=== PATIENT | male | born 1980 | race Caucasian/White ===

== ENCOUNTER 2020-09-10 10:40 | Emergency (ER) | payer MEDICAID, SELFPAY ==
--- NOTE | 2020-09-10 10:35 | ECG_ITS ---
APPROVED REPORT Exam: Resting ECG HR:77 bpm ECG Measurements Heart Rate 77 AXES DC 130 P 57 QRSd 72 QRS -15 QT 354 T 57 QTc 400 Conclusion Normal sinus rhythm Normal ECG Electronically signed by : Rosalio Pacheco, 09/11/2020 15:09:26
[2020-09-10 10:41] VITALS: BP 166/94; PULSE 98; RESP 18; O2SAT 97; BMI 22.9
--- NOTE | 2020-09-10 10:45 | XR_ITS ---
PROCEDURE: XR CHEST 2V CLINICAL HISTORY: CHEST PAIN COMPARISON: No exams were available for comparison FINDINGS: The cardiomediastinal silhouette and pulmonary vascularity are within normal limits. The lungs are clear without infiltrates, suspicious nodules, or pleural effusions. No acute bony abnormalities. IMPRESSION: No acute findings. Dictated by: Courtney Hall 09/10/2020 11:23 Courtney Hall in [place] 09/10/2020 11:23
[2020-09-10 10:55] LABS: Basophils % 0.4 % (0.1-2.0); Eosinophils # 0.1 K/mm3 (0.0-0.4); Eosinophils % 0.9 % (0.1-12.0); Hematocrit 44.6 % (42.0-52.0); Hemoglobin 15.3 g/dL (14.1-18.0); Lymphocytes # 1.6 K/mm3 (0.7-4.5); Lymphocytes % 25.2 % (10-50); Mean Corpuscular HGB Conc 34.2 g/dL (31.8-35.4); Mean Corpuscular Hemoglobin 32.3 pg (27.0-31.2); Mean Corpuscular Volume 94.4 fl (80-94); Mean Platelet Volume 7.9 fl (7.4-10.4); Monocytes # 0.6 K/mm3 (0.1-1.0); Monocytes % 9.5 % (1.7-9.3); Platelet Count 273 K/mm3 (142-424); Red Blood Count 4.72 M/mm3 (4.60-6.20); White Blood Count 6.2 K/mm3 (4.8-10.8)
[2020-09-10 11:04] LABS: Chloride 105 mmol/L (98-107); Potassium 3.5 mmoL/L (3.5-5.1); Sodium 141 mmol/L (136-145)
--- NOTE | 2020-09-10 11:04 | [facility].EDCP ---
ED Disposition Clinical Impression: Radiculopathy due to disorder of intervertebral disc Chest pain Qualifiers: Chest pain type: intercostal pain Qualified Code(s): R07.82 - Intercostal pain Disposition: Home, Self-Care Condition on Discharge: Good Instructions: DI for Atypical Chest Pain Prescriptions: diazePAM [Valium 5mg tablets] 5 mg PO BID #10 tablet Transmission Status: Received by [place] [id number] Referrals: PCP,Susy [Primary Care Provider] - Amos Uriarte MD [Staff Physician] - - Critical Care Critical Care Time: No Attestation: On 09/10/20, the high probability of a clinically significant, sudden or life threatening deterioration of the following system(s) required my full and direct attention, intervention and personal management. The time I documented below is in addition to time spent performing reported procedures but includes the following listed in this critical care notation. Medical Decision Making - Medical Records Medical records reviewed: Yes: I reviewed the patient's medical records. - Nathan Inquiry Pt receiving controlled substance: Yes Nathan was queried for this patient: Yes Risks and benefits of using a controlled substance: were discussed with pt by me Vital Signs: 09/10/20 10:41 Pulse Rate [Radial] 98 H Respiratory Rate 18 Blood Pressure [Right Arm] 166/94 H Blood Pressure Mean [Right Arm] 118 Blood Pressure Position [Right Arm] Sitting 02 Sat by Pulse Oximetry 97 Oxygen Delivery Method Room Air - Lab Data Lab Results 09/10/20 10:46: WBC 6.2, RBC 4.72, Hgb 15.3, Hct 44.6, MCV 94.4 H, MCH 32.3 H, MCHC 34.2, RDW 13.0, Plt Count 273, MPV 7.9, Neut % (Auto) 64.0, Lymph % (Auto) 25.2, P[place] % (Auto) 9.5 H, Eos % (Auto) 0.9, Baso % (Auto) 0.4, Neut # (Auto) 4.0, Lymph # (Auto) 1.6, Prow[place] # (Auto) 0.6, Eos # (Auto) 0.1, Baso # (Auto) 0.0 09/10/20 10:46: Sodium 141, Potassium 3.5, Chloride 105, Carbon Dioxide 30, Anion Gap 9.5, BUN 6 L, Creatinine 0.70, Estimated Creat Clear 152, Estimated GFR 125, Est GFR ( Amer) 151, Glucose 124 H, Calcium 9.5, Troponin I < 0.01 Result diagrams: 09/10/20 10:46 09/10/20 10:46 Orders (Tests/Meds): ED MEDICATIONS Discontinued Medications Generic Name Dose Route Start Last Admin Trade Name Edita PRN Reason Stop Dose Admin Morphine Sulfate 4 mg 09/10/20 10:56 09/10/20 11:08 Morphine 4mg/Ml Syringe IV 09/10/20 10:57 4 mg ONCE ONE Administration Ondansetron HCl 4 mg 09/10/20 10:56 09/10/20 11:07 Ondansetron 4mg/2ml Vial IV 09/10/20 10:57 4 mg ONCE ONE Administration ORDERS Category Date Time Status Troponin I Q3H Lab 09/10/20 14:00 Ordered Troponin I Q3H Lab 09/10/20 17:00 Ordered - Radiology Data #1 Image(s): Chest Image Reviewed: Yes I reviewed the patient's radiology results, Yes I discussed the image results w/the radiologist, Yes I have reviewed radiologist's interpretation - ECG Data Tracing #1 ECG initial impression date: 09/10/20 ECG initial impression time: 10:37 ECG normal with no acute: arrhythmias, ischemia, conduction abnormalities, chamber hypertrophy Normal Sinus Rhythm: Yes - Reevaluation(s) Time: 11:57 Reevaluation #1: On reevaluation, patient is feeling much better. Pain is improved. Repeat exam is normal. Patient had negative troponin. Normal EKG. Patient is to follow-up with PCP. Given strict return precautions. Verbalized understanding. Medical Decision Narrative: 39-year-old male presented to the emergency department with chronic back pain and chest discomfort. Patient is low risk for acute coronary syndrome based on heart score. Hemodynamically stable. PERC negative. Work-up initiated. Chest Pain HPI - General Chief Complaint: Chest Pain Stated Complaint: chest pain Time Seen by Provider: 09/10/20 10:45 Mode of Arrival: Ambulatory Limitations: No Limitations Description of Symptoms (Recalled from ER Triage Doc. by RN): TO ED
[2020-09-10 11:07] LABS: Anion Gap 9.5 mEq/L (5-15); Blood Urea Nitrogen 6 mg/dl (9-20); Carbon Dioxide 30 mmol/L (22.0-30.0); Creatinine Clearance Estimated 152 mL/min (50-200); Estimated Glomerular Filt Rate 125 ml/min (>60); GFR (African American) 151 ML/MIN (>60)
[2020-09-10 11:08] LABS: Calcium 9.5 mg/dl (8.4-10.2); Glucose 124 mg/dl (74-100)
[2020-09-10 11:28] LABS: Troponin I < 0.01 ng/ml (0.00-0.034)
[2020-09-10 11:30] VITALS: BP 131/112; PULSE 75; RESP 18; O2SAT 97
[2020-09-10 12:11] VITALS: BP 123/105; PULSE 71; RESP 18; TEMP 36.8; O2SAT 98
== END 2020-09-10 12:10 | disposition home or self-care (01) ==
PROVIDERS: Emergency Provider Emergency Medicine
DX: M54.14 Radiculopathy, thoracic region (principal); R07.82 Intercostal pain; F17.210 Nicotine dependence, cigarettes, uncomplicated
CPT/HCPCS: 71046; 80048; 84484; 85025; 93005; 99282; J2405

== ENCOUNTER → 2020-10-20 13:27 | Outpatient (CLI) | payer MEDICAID, SELFPAY ==
--- NOTE | 2020-10-20 13:32 | XR_ITS ---
PROCEDURE: XR MULTIPLE SPINE 6+V CLINICAL INDICATION: SPONDYLOSIS COMPARISON: No exams were available for comparison FINDINGS: Anterolisthesis of L5 over S1 measuring up to 6 millimeters. No other acute fractures or traumatic subluxation. Minor multilevel degenerative changes of the lumbar spine with facet joint arthropathy noted in the lower lumbar levels. Bone density is normal. Paravertebral soft tissues are unremarkable. 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 The visualized thoracic spine demonstrates no focal abnormality. No acute fractures or listhesis. IMPRESSION: Anterolisthesis of L5 over S1 measuring 6 millimeters. No acute fractures or traumatic subluxation. Dictated by: Courtney Hall 10/20/2020 14:31 Courtney Hall in [place] 10/20/2020 14:31
--- NOTE | 2020-10-20 13:37 | XR_ITS ---
PROCEDURE: XR SHOULDER LT MIN 2V CLINICAL INDICATION: LT ARM NUMBNESS RADIATING TO CHEST COMPARISON: No exams were available for comparison FINDINGS: No fracture or dislocation. No lytic or blastic change. There is normal mineralization. The joint spaces are well-preserved. No significant degenerative/arthritic changes. No erosive changes evident. Other findings:The soft tissues and the left hemithorax are unremarkable. IMPRESSION: No acute findings. Dictated by: Courtney Hall 10/20/2020 14:42 Courtney Hall in [place] 10/20/2020 14:42
== END ==
PROVIDERS: Visit Provider Clinical Nurse Specialist Adult Health
DX: M54.2 Cervicalgia (principal); M47.812 Spondylosis without myelopathy or radiculopathy, cervical region; M47.816 Spondylosis without myelopathy or radiculopathy, lumbar region
CPT/HCPCS: 72084; 73030

== ENCOUNTER 2024-01-01 10:07 | Emergency (ER) | payer MEDICAID, SELFPAY ==
[2024-01-01 10:10] VITALS: BP 125/61; PULSE 79; RESP 19; TEMP 36.6; O2SAT 98; BMI 23.3
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
[2024-01-01 11:18] VITALS: BP 125/61; PULSE 79; RESP 19; TEMP 36.6; O2SAT 98
== END 2024-01-01 11:20 | disposition home or self-care (01) ==
PROVIDERS: Emergency Provider Nurse Practitioner Family; PCP Family Medicine
DX: L03.311 Cellulitis of abdominal wall (principal); S67.21XA Crushing injury of right hand, initial encounter; M79.641 Pain in right hand; M25.531 Pain in right wrist; W22.8XXA Striking against or struck by other objects, initial encounter
CPT/HCPCS: 73110; 73130; 99204; 99212; G0463

== ENCOUNTER 2024-01-02 02:31 | Emergency (ER) | payer SELFPAY ==
[2024-01-02 02:31] VITALS: BP 138/83; PULSE 70; RESP 13; TEMP 36.6; O2SAT 98
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
--- NOTE | 2024-01-02 02:36 | XR_ITS ---
PROCEDURE INFORMATION: Exam: XR Left Knee Exam date and time: 01/02/2024 3:11 AM Age: 43 years old Clinical indication: Pain; Knee; Left TECHNIQUE: Imaging protocol: Radiologic exam of the left knee. Views: 3 views. COMPARISON: No relevant prior studies available. FINDINGS: Bones/joints: Normal. Soft tissues: Normal. IMPRESSION: No acute findings.
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
--- NOTE | 2024-01-02 02:38 | PC.NURSE ---
Patient to radiology
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
[2024-01-02 02:53] LABS: Basophils # 0.1 K/mm3 (0-0.2); Basophils % 1.2 % (0.1-2.0); Eosinophils # 0.2 K/mm3 (0.0-0.4); Eosinophils % 2.3 % (0.1-12.0); Hematocrit 47.4 % (42.0-52.0); Hemoglobin 15.6 g/dL (14.1-18.0); Lymphocytes # 1.6 K/mm3 (0.7-4.5); Lymphocytes % 21.9 % (10-50); Mean Corpuscular HGB Conc 32.9 g/dL (31.8-35.4); Mean Corpuscular Hemoglobin 34.1 pg (27.0-31.2); Mean Corpuscular Volume 103.7 fl (80-94); Mean Platelet Volume 8.3 fl (7.4-10.4); Monocytes # 0.5 K/mm3 (0.1-1.0); Monocytes % 6.9 % (1.7-9.3); Neutrophils % 67.8 % (37.0-80.0); Platelet Count 224 K/mm3 (142-424); Red Blood Count 4.57 M/mm3 (4.60-6.20); Red Cell Distribution Width 14.6 % (11.5-17.5); White Blood Count 7.4 K/mm3 (4.8-10.8)
[2024-01-02 03:06] LABS: Chloride 103 mmol/L (98-107)
[2024-01-02 03:07] LABS: Potassium 4.1 mmoL/L (3.5-5.1); Sodium 139 mmol/L (136-145)
[2024-01-02 03:09] LABS: Alanine Aminotransferase 44 U/L (12-78); Alkaline Phosphatase 59 U/L (38-126); Aspartate Amino Transferase 70 U/L (17-59); Bilirubin,Total 0.8 mg/dl (0.2-1.3); Blood Urea Nitrogen 11 mg/dl (9-20); Estimated Glomerular Filt Rate 81 ml/min (>60); GFR (African American) 98 ML/MIN (>60)
[2024-01-02 03:10] LABS: Albumin Level 4.1 g/dl (3.5-5.0); Albumin/Globulin Ratio 1.3 (1.1-1.8); Anion Gap 7.1 mEq/L (5-15); Calcium 9.1 mg/dl (8.4-10.2); Carbon Dioxide 33 mmol/L (22.0-30.0); Globulin 3.1 g/dL (1.3-3.2); Glucose 98 mg/dl (74-100); Total Protein,Serum 7.2 g/dl (6.3-8.2)
--- NOTE | 2024-01-02 03:23 | PC.NURSE ---
pt is back in the room from ct scan
[2024-01-02] MEDS: SODIUM CHLORIDE 0.9% 10ML SYR (RAD ONLY) 10 ML IV (03:26)
[2024-01-02] MEDS: 0.9 % SODIUM CHLORIDE 50 ML VIAL IV (03:26)
[2024-01-02] MEDS: IOPAMIDOL-370 (76%);100ML BOTTLE 180 ML IV (03:26)
[2024-01-02 03:36] VITALS: BMI 24.0
--- NOTE | 2024-01-02 03:36 | PC.NURSE ---
Addendum entered by JOE Hall 01/02/24 03:37: spoke with Lexie @ [facility] Original Note: call to [facility] for transfer to their facility
--- NOTE | 2024-01-02 03:48 | PC.NURSE ---
ED doctor on phone with Dr. Rosado, who has accepted patient.
--- NOTE | 2024-01-02 04:00 | PC.NURSE ---
Call from [facility] to speak to Dr. Venegas, informed them he was inserting a chest tube in patient, they will call back in approx. 10 minutes
[2024-01-02] MEDS: KETAMINE 50MG/1ML SYRINGE 20 MG IV (04:01)
--- NOTE | 2024-01-02 04:13 | XR_ITS ---
PROCEDURE INFORMATION: Exam: XR Chest Exam date and time: 01/02/2024 4:10 AM Age: 43 years old Clinical indication: Device placement; Chest tube; Additional info: Post- chest tube insertion TECHNIQUE: Imaging protocol: Radiologic exam of the chest. Views: 1 view. COMPARISON: CT ANGIO CHEST 01/02/2024 3:10 AM FINDINGS: Tubes, catheters and devices: RIGHT chest tube. Lungs: Minimal subsegmental atelectasis/scarring. No consolidation. Pleural spaces: Tiny RIGHT pneumothorax. Tiny RIGHT pleural effusion. Heart/Mediastinum: No cardiomegaly. Bones/joints: RIGHT lateral rib fractures. Soft tissues: Unremarkable. IMPRESSION: S/P RIGHT chest tube placement. Tiny residual pneumothorax.
--- NOTE | 2024-01-02 04:40 | PC.NURSE ---
20 Fr Chest tube inserted by Dr. Venegas
[2024-01-02 04:53] VITALS: BP 115/82; PULSE 63; RESP 15; TEMP 36.6; O2SAT 98
== END 2024-01-02 05:03 | disposition other institution (70) ==
PROVIDERS: Emergency Provider Emergency Medicine
DX: S22.41XA Multiple fractures of ribs, right side, initial encounter for closed fracture (principal); J93.83 Other pneumothorax; S01.112A Laceration without foreign body of left eyelid and periocular area, initial encounter; M25.562 Pain in left knee; M79.644 Pain in right finger(s); F17.210 Nicotine dependence, cigarettes, uncomplicated; V49.9XXA Car occupant (driver) (passenger) injured in unspecified traffic accident, initial encounter
CPT/HCPCS: 32551; 70450; 70496; 70498; 71045; 71275; 72125; 72128; 72131; 73130; 73562; 74174; 80053; 85025; 96374; 99291; Q9967

== ENCOUNTER 2024-01-06 05:06 | Emergency (ER) | payer MEDICAID, SELFPAY ==
[2024-01-06] VITALS (18 sets, daily range): BP systolic 113–150; BP diastolic 68–90; PULSE 98–129; RESP 22–51; TEMP 36.6–36.8; O2SAT 0–100; BMI 23.7
--- NOTE | 2024-01-06 05:12 | ECG_ITS ---
APPROVED REPORT Exam: Resting ECG HR:129 bpm ECG Measurements Heart Rate 129 AXES NE 96 P 62 QRSd 73 QRS 2 QT 275 T 59 QTc 351 Conclusion Sinus tachycardia Electronically signed by : WENDY VINES, 01/06/2024 15:21:10
[2024-01-06] MEDS: LACTATED RINGERS 1000ML 1,000 ML 999 ML IV (05:20)
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
[2024-01-06 05:23] LABS: Basophils # 0.1 K/mm3 (0-0.2); Basophils % 0.5 % (0.1-2.0); Eosinophils # 0.1 K/mm3 (0.0-0.4); Eosinophils % 0.7 % (0.1-12.0); Hematocrit 37.7 % (42.0-52.0); Hemoglobin 12.3 g/dL (14.1-18.0); Lymphocytes # 1.6 K/mm3 (0.7-4.5); Lymphocytes % 11.5 % (10-50); Mean Corpuscular HGB Conc 32.5 g/dL (31.8-35.4); Mean Corpuscular Hemoglobin 33.7 pg (27.0-31.2); Mean Corpuscular Volume 103.7 fl (80-94); Mean Platelet Volume 8.9 fl (7.4-10.4); Monocytes % 7.6 % (1.7-9.3); Neutrophils # 10.7 K/mm3 (1.8-7.8); Neutrophils % 79.7 % (37.0-80.0); Platelet Count 293 K/mm3 (142-424); Red Blood Count 3.64 M/mm3 (4.60-6.20); Red Cell Distribution Width 14.2 % (11.5-17.5); White Blood Count 13.4 K/mm3 (4.8-10.8)
--- NOTE | 2024-01-06 05:23 | PC.NURSE ---
pt in ct at this time. family notified of current status.
--- NOTE | 2024-01-06 05:26 | PC.NURSE ---
pt to CT
[2024-01-06] MEDS: ONDANSETRON 4MG/2ML VIAL 4 MG IV (05:27)
[2024-01-06 05:29] LABS: VBG Base Excess -0.1 mmol/L (-2.4-2.3); VBG HCO3 25.4 mmol/L (23-30); VBG Oxygen Saturation 49.6 % (50-70); VBG PCO2 46.4 mmol/L (35-51); VBG PH 7.36 mmol/L (7.31-7.41); VBG PO2 26.3 mmol/L (28-40); VBG Total CO2 26.8 mmol/L (23-27)
[2024-01-06 05:30] LABS: Lactate Venous 2.6 mmol/L (0.4-2.0)
[2024-01-06 05:32] LABS: Alanine Aminotransferase 25 U/L (12-78); Albumin Level 3.7 g/dl (3.5-5.0); Albumin/Globulin Ratio 1.2 (1.1-1.8); Alkaline Phosphatase 71 U/L (38-126); Anion Gap 11.1 mEq/L (5-15); Aspartate Amino Transferase 28 U/L (17-59); Bilirubin,Total 0.5 mg/dl (0.2-1.3); Blood Urea Nitrogen 19 mg/dl (9-20); Calcium 8.7 mg/dl (8.4-10.2); Carbon Dioxide 27 mmol/L (22.0-30.0); Chloride 101 mmol/L (98-107); Creatinine Clearance Estimated 118 mL/min (50-200); Estimated Glomerular Filt Rate 92 ml/min (>60); GFR (African American) 111 ML/MIN (>60); Glucose 176 mg/dl (74-100); Potassium 4.1 mmoL/L (3.5-5.1); Sodium 135 mmol/L (136-145); Total Protein,Serum 6.7 g/dl (6.3-8.2)
--- NOTE | 2024-01-06 05:32 | PC.NURSE ---
radiology notified to [facility] and make a disc of images
[2024-01-06 05:34] LABS: Activated Partial Thrombo Time 26.6 seconds (22.8-30.6); Prothrombin Time 11.2 seconds (10.1-12.5)
--- NOTE | 2024-01-06 05:41 | PC.NURSE ---
call placed to [facility]. spoke with sydnee.
--- NOTE | 2024-01-06 05:46 | PC.NURSE ---
attempted to obtain pulse ox on pts fingers, ears, and forehead, but unable to obtain . MD aware.
--- NOTE | 2024-01-06 05:50 | PC.NURSE ---
ED doctor on phone with Dr. Rosado @ [facility]
--- NOTE | 2024-01-06 05:51 | PC.NURSE ---
call placed to [facility] and advised need for flight.
--- NOTE | 2024-01-06 05:52 | PC.NURSE ---
v/o 2nd unit of blood per [facility] rec.
[2024-01-06] MEDS: 0.9 % SODIUM CHLORIDE 50 ML VIAL IV (05:57)
[2024-01-06] MEDS: SODIUM CHLORIDE 0.9% 10ML SYR (RAD ONLY) 10 ML IV (05:57)
[2024-01-06] MEDS: IOPAMIDOL-370 (76%);100ML BOTTLE 100 ML IV (05:57)
[2024-01-06] MEDS: TRANEXAMIC ACID 1,000 MG in 0.9 % SODIUM CHLORIDE 250 ML 32.5 MG IV (06:07)
--- NOTE | 2024-01-06 06:15 | PC.NURSE ---
blood sent with flight crew as patient left facility
--- NOTE | 2024-01-06 06:26 | PC.NURSE ---
0551- 1st unit emergent blood started 0604- 1st unit PRBC's finished 0605- 2nd unit PRBC's started 0616- 2nd unit finished. TXA started in LAC 0600
--- NOTE | 2024-01-06 06:43 | PC.NURSE ---
0613- [facility] arrived 0623- pt left facility.
--- NOTE | 2024-01-06 07:03 | PC.NURSE ---
0615 - pts o2 sats decreased to 85%, with good pleath on monitor. pt was breathing through mouth at that time. O@ increased to 4L NC. Instructed pt to breathe through nose and O2 sats increased to >95%. MD at bedside.
[2024-01-06 09:27] LABS: Reflex Lactic Add Lactic Reflex
== END 2024-01-06 06:28 | disposition short-term general hospital (02) ==
PROVIDERS: Emergency Provider Emergency Medicine
DX: S36.09XA Other injury of spleen, initial encounter (principal); R57.1 Hypovolemic shock; R10.0 Acute abdomen; R00.0 Tachycardia, unspecified; X58.XXXA Exposure to other specified factors, initial encounter
CPT/HCPCS: 36430; 71275; 74174; 80053; 82803; 85025; 85610; 85730; 86850; 93005; 96361; 96374; 96375; 99291; J2405; J7120; P9016; Q9967

== ENCOUNTER 2024-06-12 10:15 | Emergency (ER) | payer MEDICAID, SELFPAY ==
[2024-06-12 10:16] VITALS: BP 124/88; PULSE 83; RESP 18; TEMP 36.6; O2SAT 100; BMI 21.7
--- NOTE | 2024-06-12 10:52 | ED_ITS ---
Discharge Plan Disposition Patient Disposition: Home, Self-Care Prescriptions Prescriptions: New sulfamethoxazole-trimethoprim [Bactrim DS] 800-160 mg tablet 1 tab PO Q12H 7 Days Qty: 14 0RF No Action methocarbamol 500 mg tablet 500 mg PO Q8H sennosides-docusate sodium [Senexon-S] 8.6-50 mg tablet 2 tab PO DAILYP PRN (Reason: stool softner) acetaminophen 500 mg tablet 1,000 mg PO Q6HP PRN (Reason: Pain) gabapentin 100 mg capsule 100 mg PO DIRECTED oxycodone 5 mg Tablet 5 mg PO Q6H PRN (Reason: Pain) hydroxyzine pamoate 25 mg capsule 25 mg PO Q6HP PRN (Reason: Anxiety) Referrals Follow up/Referrals: Provider,Referral, MD [Primary Care Provider] - See instructions Activity Restrictions/Add. Instructions Additional Instructions/Restrictions: At this time it was felt you are safe to be discharged home. If new or worsening symptoms please do not hesitate to return the emergency department. It is okay to shower do not submerge your leg totally in water until it is healed up, it should heal over the next few days please take antibiotics as prescribed and change her bandage as you are needed. If it continues to get worse after 24 to 48 hours please follow-up with your family doctor for continued evaluation. Clinical Impressions Clinical Impression: Abscess of left thigh Instructions Patient Instructions: DI for Skin Abscess Print Language Print Language: [place] Citizen Discharge ED Provider: Doc Anderson General Adult HPI General Chief complaint: Skin/Abscess/Foreign Body Stated complaint: Boil on L leg Time Seen by Provider: 06/12/24 10:20 Mode of Arrival: Ambulatory Source of Information: Patient Limitations: No Limitations Description of Symptoms (Recalled from ER Triage Doc. by RN): red raised area to left upper leg x 2 weeks History of Present Illness HPI narrative: Patient is a 43-year-old male past medical history of recurrent abscesses who presents emergency department for evaluation of concern for an abscess. Onset was subacute over 2 weeks ago he has had this slowly progressive swelling of his left lateral thigh. Patient is asplenic. No other acute complaints at this time Related Data Home Medications ?Medication ?Instructions ?Recorded ?Confirmed acetaminophen 500 mg tablet 1,000 mg PO Q6HP PRN Pain 01/06/24 01/06/24 gabapentin 100 mg capsule 100 mg PO DIRECTED neuropathy 01/06/24 01/06/24 hydroxyzine pamoate 25 mg capsule 25 mg PO Q6HP PRN Anxiety 01/06/24 01/06/24 methocarbamol 500 mg tablet 500 mg PO Q8H 01/06/24 01/06/24 oxycodone 5 mg tablet 5 mg PO Q6H PRN Pain 01/06/24 01/06/24 sennosides 8.6 mg-docusate sodium 2 tab PO DAILYP PRN stool softner 01/06/24 01/06/24 50 mg tablet (Senexon-S) Previous Rx's ?Medication ?Instructions ?Recorded sulfamethoxazole 800 1 tab PO Q12H 7 days #14 tabs 06/12/24 mg-trimethoprim 160 mg tablet (Bactrim DS) Allergies Allergy/AdvReac Type Severity Reaction Status Date / Time No Known Allergies Allergy Verified 04/16/18 13:01 [facility] Disclaimer: The information contained in this section may have been updated after the patient was seen, as this information can be updated by other users. Medical History (Updated 06/12/24 @ 10:52 by Doc Anderson MD) Depression Anxiety Urinary tract infection History of gastroesophageal reflux (GERD) Migraine Asthma Social History (Updated 01/01/24 @ 20:24 by Jeromy Galvan APRN) Smoking Status: Current every day smoker tobacco type: cigarettes alcohol intake: never current occupational status: disabled Travel in the last 8 weeks: None Have you lived/traveled outside [place] in past 30 days?: No Contact w/someone who lives/traveled outside US past 30 days?: No Exposure to someone with infectious disease in past 14 days?: No Do you have a fever (greater than 100.4 F or 38 C)?: No Have you tested positive for COVID-19: No Exposed to someone with COVID-19 in past 14 days?: No Do you have a sore throat?: No Do you have a cough?: No Do you have any weakness?: No Do you have any diarrhea?: No Are you experiencing any unusual bleeding?: No Do you have any muscle aches/pain?: No Do you have any abdominal pain?: No Are you experiencing loss of taste or smell?: No Other Medical History Have you received the Flu Vaccine for this season: Yes Have you received the Pneumonia Vaccine: Yes ROS Obtained: Yes Systems reviewed as appropriate & no additional complaints except as documented Physical Exam General General appearance: alert and in no apparent distress Head Head exam: atraumatic and normocephalic Eye Eye exam: Present PERRL and EOMI ENT ENT exam: Present mucous membranes moist Neck Neck exam: Present normal inspection Chest Chest inspection: Present normal inspection and symmetric chest wall rise Respiratory Respiratory exam: Absent respiratory distress Cardiovascular Cardiovascular exam: Present regular rate and normal rhythm Extremities Exam Extremities exam: Present other (Circumferential area of erythema over the left lateral thigh 5 cm with central area of fluctuance) Neurological Exam Neurological exam: Present alert Psychiatric Psychiatric exam: Present normal affect Skin Skin exam: Present warm and dry Medical Decision Making Medical Records Screening: Per USPSTF and CDC recommendations, given the prevalence of disease in our region, it is our hospital?s policy to screen for HIV and viral Hepatitis for all patients aged 18 and over and those with ongoing risk factors. Nathan Inquiry Pt receiving controlled substance: No Vital Signs: 06/12/24 10:16 Temperature 98 F Temperature Source Oral Pulse Rate [Right] 83 Respiratory Rate 18 Blood Pressure [Right Arm] 124/88 Blood Pressure Mean [Right Arm] 100 02 Sat by Pulse Oximetry 100 Oxygen Delivery Method Room Air Orders (Tests/Meds): ORDERS Category Date Time Status POCUS Point of Care (ER Only) Stat Exams 06/12/24 10:32 Ordered HIV (1&2) Antibody Rapid Stat Lab 06/12/24 10:26 Ordered Hep C Ab with Reflex to RNA Stat Lab 06/12/24 10:26 Ordered Medical Decision Narrative: In summary patient is a 43-year-old male past medical history described above presents emergency department for evaluation of lateral thigh swelling. Given patient's history of recurrent abscesses and based on physical exam it is strongly consistent with abscess. Patient is well-appearing otherwise. Plan ultrasound at bedside shows approximately 0.5 cm x 1 cm fluid collection just beneath the surface at the area where the central fluctuance is. Shared decision-making discussion was had with numbing by lancing or just lancing alone. Patient elected to proceed with lancing with success with drainage of purulent fluid patient will be discharged with Bactrim was given return precautions. Procedure: Procedure performed was [id number] ultrasound of soft tissue. Procedure performed by Doc Anderson. Area of erythema and fluctuance over the left lateral proximal thigh was identified and using the linear probe the area of fluctuance was imaged. There is a approximately 0.5 x 1.0 cm hypoechoic area. This is consistent with fluid collection. Patient tolerated procedure well. There were no immediate complications. Procedure: Procedure performed was incision and drainage. Procedure performed by Doc Anderson. Patient deferred numbing with lidocaine. Area of maximum fluctuance was lanced with an 11 blade with 1 incisional wound. 3 cc of purulence was expressed from the wound. Wound was subsequently dressed. Patient tolerated the procedure well. There were no immediate complications. Critical Care Critical Care Time Critical Care Time: No
[2024-06-12 11:04] VITALS: BP 128/77; PULSE 81; RESP 18; TEMP 36.7; O2SAT 99
== END 2024-06-12 11:06 | disposition home or self-care (01) ==
PROVIDERS: Emergency Provider Emergency Medicine
DX: L02.416 Cutaneous abscess of left lower limb (principal); R22.32 Localized swelling, mass and lump, left upper limb
CPT/HCPCS: 10060; 99283

== ENCOUNTER 2025-05-24 05:46 | Emergency (ER) | payer MEDICAID, SELFPAY ==
[2025-05-24] VITALS (10 sets, daily range): BP systolic 111–133; BP diastolic 78–89; PULSE 52–75; RESP 16–18; TEMP 36.6–37.1; O2SAT 97–100; BMI 21.7
--- NOTE | 2025-05-24 05:56 | ECG_ITS ---
APPROVED REPORT Exam: Resting ECG HR:65 bpm ECG Measurements Heart Rate 65 AXES GA 154 P 62 QRSd 80 QRS 19 QT 380 T 67 QTc 391 Conclusion SINUS RHYTHM NORMAL ECG Electronically signed by : WALESKA MEZA, 05/24/2025 07:19:33
--- OUTSIDE RECORDS SUMMARY | 2025-05-24 06:00 | XMS_ITS | Clinical Summary ---
Author Organization [facility] Address [facility] [place] [address] Phone Care Team Providers Care Applications Trainer Name Role Phone Clari Mccarthy MA Unavailable [phone] Conditions or Problems No information available. Medications No information available. Medications Administered No information available. Allergies, Adverse Reactions, Alerts No information available. Results No information available. Plan of Care No information available. Procedures No information available. Vital Signs No information available. Immunizations No information available. Advance Directives No information available.
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
--- NOTE | 2025-05-24 06:07 | XR_ITS ---
PROCEDURE INFORMATION: Exam: XR Chest Exam date and time: 05/24/2025 6:36 AM Age: 44 years old Clinical indication: Pain; Shortness of breath; Other: Cp; Additional info: Cp SOA TECHNIQUE: Imaging protocol: Radiologic exam of the chest. Views: 2 views. COMPARISON: CT ANGIO CHEST 01/06/2024 5:27 AM FINDINGS: Lungs: There is peribronchial cuffing consistent with airways disease. Pleural spaces: No pleural effusion. No pneumothorax. Heart/Mediastinum: No cardiomegaly. Bones/joints: There are healed right rib fractures. IMPRESSION: No evidence of active pulmonary disease.
[2025-05-24 06:15] LABS: Hematocrit 42.4 % (42.0-52.0); Hemoglobin 14.7 g/dL (14.1-18.0); Immature Granulocytes % 0.3 %; Mean Corpuscular HGB Conc 34.7 g/dL (31.8-35.4); Mean Corpuscular Hemoglobin 33.0 pg (27.0-31.2); Mean Corpuscular Volume 95.3 fl (80-94); Nucleated Red Blood Cells % 0 %; Platelet Count 317 K/mm3 (142-424); Red Blood Count 4.45 M/mm3 (4.60-6.20); Red Cell Distribution Width-SD 46.2 fL; White Blood Count 11.9 K/mm3 (4.8-10.8)
--- NOTE | 2025-05-24 06:18 | HMH.EDGENADL ---
Discharge Plan Disposition Patient Disposition: Home, Self-Care Prescriptions Prescriptions: No Action methocarbamol 500 mg tablet 500 mg PO Q8H sennosides-docusate sodium [Senexon-S] 8.6-50 mg tablet 2 tab PO DAILYP PRN (Reason: stool softner) acetaminophen 500 mg tablet 1,000 mg PO Q6HP PRN (Reason: Pain) gabapentin 100 mg capsule 100 mg PO DIRECTED oxycodone 5 mg Tablet 5 mg PO Q6H PRN (Reason: Pain) hydroxyzine pamoate 25 mg capsule 25 mg PO Q6HP PRN (Reason: Anxiety) sulfamethoxazole-trimethoprim [Bactrim DS] 800-160 mg tablet 1 tab PO Q12H 7 Days Qty: 14 0RF Referrals Follow up/Referrals: Cj Desai MD [Staff Physician, Cardiology] - See instructions Provider,MD Steve [Primary Care Provider, Medical] - See instructions Activity Restrictions/Add. Instructions Additional Instructions/Restrictions: I strongly recommend that you wean off or completely discontinue your massive amount of caffeine intake. If you have persistent chest discomfort or other concerns please follow-up with our special education bus driver Dr. Desai. Clinical Impressions Clinical Impression: Chest pain, Caffeine adverse reaction Print Language Print Language: Macedonian Discharge ED Provider: Adan Portillo General Adult HPI <Adan Portillo MD - Last Filed: 05/24/25 06:57> General Chief complaint: Arrhythmia/Palpitations Stated complaint: Dizziness,SOB, Syncope Time Seen by Provider: 05/24/25 06:05 Mode of Arrival: EMS Source of Information: Patient and EMS Limitations: Physical Limitations Description of Symptoms (Recalled from ER Triage Doc. by RN): patient c/o SOB, dizziness, and increased heart rate. patient states that this has been going on since summer but has recently gotten worse. EMS stated patients heart rate flucuated from 34-124 History of Present Illness HPI narrative: 44-year-old male who reports no known cardiac problems but does have a history of lumbar radiculopathy presents to the ER with concerns of shortness of breath, dizziness, elevated heart rate, palpitations. Patient reports he has had short episodes like this since this summer but recently they have become more frequent and gotten worse. He reports he has never been evaluated for this in the past and states he called 911 tonight approximately 10 minutes after the episode started because it was the worst episode he has ever experienced. He states he felt dizzy and like he was going to pass out with his heart slamming in his chest. He did not check his heart rate at home. EMS reported heart rate variability between 34 and 124. On arrival in the ER patient was placed on cardiac catheterization technologist and is in a sinus rhythm with rate in the 60s to 70s. He states he feels improved now compared to prior. at bedside reports patient has been multiple Monster energy drinks, up to 6/day. Patient reports between 3 PM and 11 PM last night he drank at least 3 monsters. He reports when he was having his palpitations and high heart rate he felt chest tightness but overall he feels significantly improved already and has not had symptoms while in the ER. He denies fevers, chills, headache, numbness, tingling, weakness, nausea, vomiting, diarrhea, cough, congestion, or other associated symptoms. Related Data Home Medications ?Medication ?Instructions ?Recorded ?Confirmed acetaminophen 500 mg tablet 1,000 mg PO Q6HP PRN Pain 01/06/24 01/06/24 gabapentin 100 mg capsule 100 mg PO DIRECTED neuropathy 01/06/24 01/06/24 hydroxyzine pamoate 25 mg capsule 25 mg PO Q6HP PRN Anxiety 01/06/24 01/06/24 methocarbamol 500 mg tablet 500 mg PO Q8H 01/06/24 01/06/24 oxycodone 5 mg tablet 5 mg PO Q6H PRN Pain 01/06/24 01/06/24 sennosides 8.6 mg-docusate sodium 2 tab PO DAILYP PRN stool softner 01/06/24 01/06/24 50 mg tablet (Senexon-S) Previous Rx's ?Medication ?Instructions ?Recorded sulfamethoxazole 800 1 tab PO Q12H 7 days #14 tabs 06/12/24 mg-trimethoprim 160 mg tablet (Bactrim DS) Allergies Allergy/AdvReac Type Severity Reaction Status Date / Time No Known Allergies Allergy Verified 04/16/18 13:01 [facility] <Adan Portillo MD - Last Filed: 05/24/25 06:57> [facility] Disclaimer: The information contained in this section may have been updated after the patient was seen, as this information can be updated by other users. Medical History (Updated 05/24/25 @ 09:40 by Carlos Alberto Brizuela MD) Depression Anxiety Urinary tract infection History of gastroesophageal reflux (GERD) Migraine Asthma Social History (Updated 01/01/24 @ 20:24 by Jeromy Galvan APRN) Smoking Status: Current every day smoker tobacco type: cigarettes alcohol intake: never current occupational status: disabled Travel in the last 8 weeks?: None Other Medical History Have you received the Flu Vaccine for this season: Yes Have you received the Pneumonia Vaccine: Yes <Adan Portillo MD - Last Filed: 05/24/25 06:57> ROS Obtained: Yes Systems reviewed as appropriate & no additional complaints except as documented per HPI Physical Exam <Adan Portillo MD - Last Filed: 05/24/25 06:57> General General appearance: alert and in no apparent distress Head Head exam: atraumatic and normocephalic Eye Eye exam: Present PERRL and EOMI ENT ENT exam: Present mucous membranes moist Neck Neck exam: Present normal inspection and full ROM Chest Chest inspection: Present symmetric chest wall rise Respiratory Respiratory exam: Present normal lung sounds bilaterally; Absent respiratory distress, wheezes or stridor Cardiovascular Cardiovascular exam: Present regular rate and normal rhythm Abdominal Exam Abdominal exam: Present soft; Absent distention, tenderness, guarding or rebound Extremities Exam Extremities exam: Present full ROM and normal capillary refill; Absent edema Neurological Exam Neurological exam: Present alert and oriented X3; Absent motor sensory deficit Psychiatric Psychiatric exam: Present normal affect and normal mood Skin Skin exam: Present warm and dry Medical Decision Making <Adan Portillo MD - Last Filed: 05/24/25 06:57> Medical Records Medical records reviewed: Yes I reviewed the patient's medical records. Screening: Per USPSTF and CDC recommendations, given the prevalence of disease in our region, it is our hospital?s policy to screen for HIV and viral Hepatitis for all patients aged 18 and over and those with ongoing risk factors. Nathan Inquiry Pt receiving controlled substance: No Vital Signs: 05/24/25 05:53 05/24/25 05:59 05/24/25 06:30 Temperature 98 F 98.8 F Temperature Source Oral Pulse Rate 65 70 Pulse Rate [Left] 75 Respiratory Rate 18 18 18 Blood Pressure 118/78 120/86 Blood Pressure [Right Arm] 119/87 Blood Pressure Mean Blood Pressure Mean [Right Arm] 97 Blood Pressure Source [Right Arm] Automatic Cuff Blood Pressure Position [Right Arm] Sitting 02 Sat by Pulse Oximetry 100 98 97 Oxygen Delivery Method Room Air Room Air 05/24/25 07:00 05/24/25 07:30 05/24/25 08:00 Temperature Temperature Source Pulse Rate 60 64 52 L Pulse Rate [Left] Respiratory Rate 18 18 16 Blood Pressure 111/79 120/80 117/79 Blood Pressure [Right Arm] Blood Pressure Mean 89 90 86 Blood Pressure Mean [Right Arm] Blood Pressure Source [Right Arm] Blood Pressure Position [Right Arm] 02 Sat by Pulse Oximetry 98 98 97 Oxygen Delivery Method 05/24/25 08:30 05/24/25 09:00 Temperature Temperature Source Pulse Rate 56 L 57 L Pulse Rate [Left] Respiratory Rate 18 16 Blood Pressure 130/84 132/88 Blood Pressure [Right Arm] Blood Pressure Mean 92 95 Blood Pressure Mean [Right Arm] Blood Pressure Source [Right Arm] Blood Pressure Position [Right Arm] 02 Sat by Pulse Oximetry 97 97 Oxygen Delivery Method Lab Data Lab Results 05/24/25 05:52: WBC 11.9 H, RBC 4.45 L, Hgb 14.7, Hct 42.4, MCV 95.3 H, MCH 33.0 H, MCHC 34.7, RDW 13.2, Plt Count 317, MPV 10.5 H, Neut % (Auto) 63.0, Lymph % (Auto) 23.9, Dare % (Auto) 10.4 H, Eos % (Auto) 1.8, Baso % (Auto) 0.6, Neut # (Auto) 7.5, Lymph # (Auto) 2.8, Dare # (Auto) 1.2 H, Eos # (Auto) 0.2, Baso # (Auto) 0.1, PT 11.7, INR 1.06, Sodium 140, Potassium 4.4, Chloride 108 H, Carbon Dioxide 22, Anion Gap 14.4, BUN 14, Creatinine 0.90, Estimated Creat Clear 106, Estimated GFR 91, Est GFR ( Amer) 110, Glucose 111 H, Calcium 8.4, Total Bilirubin 0.9, AST 76 H, ALT 22, Alkaline Phosphatase 80, Troponin I < 0.01, NT-Pro-B Natriuret Pep < 20.0, Total Protein 7.5, Albumin 4.6, Globulin 2.9, Albumin/Globulin Ratio 1.6, TSH 3.06, Free T4 0.79 05/24/25 08:47: Troponin I < 0.01 05/24/25 05:52 05/24/25 05:52 Orders (Tests/Meds): ED MEDICATIONS Generic Name Dose Route Start Last Admin Trade Name Freq PRN Reason Stop Dose Admin Nitroglycerin 0.4 mg 05/24/25 06:07 Nitroglycerin 0.4mg Sl Tablet SL 05/25/25 06:08 Q5MINP PRN Chest Pain Discontinued Medications Generic Name Dose Route Start Last Admin Trade Name Freq PRN Reason Stop Dose Admin Aspirin 324 mg 05/24/25 06:07 05/24/25 06:24 Aspirin 81mg Chewable Tablet PO 05/24/25 06:08 324 mg ONCE ONE Administration ORDERS Category Date Time Status XR chest 2V Stat Exams 05/24/25 06:07 Completed Complete Blood Count Auto Diff Stat Lab 05/24/25 05:52 Completed Comprehensive Metabolic Panel Stat Lab 05/24/25 05:52 Completed D-Dimer Stat Lab 05/24/25 05:52 Received Free T4 (Free Thyroxine) Stat Lab 05/24/25 05:52 Completed NT Pro Brain Natriuretic Pep. Stat Lab 05/24/25 05:52 Completed Prothrombin Time INR Stat Lab 05/24/25 05:52 Completed Thyroid Stimulating Hormone Stat Lab 05/24/25 05:52 Completed Troponin I Q3H Lab 05/24/25 08:47 Completed Troponin I Q3H Lab 05/24/25 12:15 Ordered Troponin I Stat Lab 05/24/25 05:52 Completed Medical Decision Narrative: In summary, this 44-year-old male with comorbidities described in the HPI presents to the emergency department today with chest tightness associated with racing heart, dizziness that has since resolved. On initial evaluation patient is hemodynamically stable, afebrile, GCS 15, presented by EMS but is independently ambulatory in the ER, benign cardiopulmonary exam, no peripheral edema, unremarkable abdominal exam, no neurologic deficits. Differential diagnosis includes but is not limited to ACS, PE, arrhythmia, caffeine side effect, thyroid abnormality, electrolyte abnormality, dehydration, kidney dysfunction, among others. Based on these concerns, I ordered hematologic and serum labs, D-dimer, cardiac workup, chest x-ray. ECG personally interpreted demonstrates normal sinus rhythm, rate 65, normal axis, normal [place] and QTc, no STEMI. Patient received aspirin initially for treatment. He was not having chest pressure or pain so he did not take the nitro. Labs personally reviewed demonstrate mild leukocytosis WBC 11.9 is nonspecific and nonactionable at this time, no anemia, normal platelets, PT/INR normal, chemistry and troponin pending at the time of physician handoff. XR personally interpreted demonstrates no lobar infiltrate or pneumothorax, see radiology read for final interpretation which is pending at the time of physician shift change. Patient handed off to Dr. Brizuela in stable condition pending additional lab results and imaging results. <Carlos Alberto Brizuela MD - Last Filed: 05/24/25 09:41> Vital Signs: 05/24/25 05:53 05/24/25 05:59 05/24/25 06:30 Temperature 98 F 98.8 F Temperature Source Oral Pulse Rate 65 70 Pulse Rate [Left] 75 Respiratory Rate 18 18 18 Blood Pressure 118/78 120/86 Blood Pressure [Right Arm] 119/87 Blood Pressure Mean Blood Pressure Mean [Right Arm] 97 Blood Pressure Source [Right Arm] Automatic Cuff Blood Pressure Position [Right Arm] Sitting 02 Sat by Pulse Oximetry 100 98 97 Oxygen Delivery Method Room Air Room Air 05/24/25 07:00 05/24/25 07:30 05/24/25 08:00 Temperature Temperature Source Pulse Rate 60 64 52 L Pulse Rate [Left] Respiratory Rate 18 18 16 Blood Pressure 111/79 120/80 117/79 Blood Pressure [Right Arm] Blood Pressure Mean 89 90 86 Blood Pressure Mean [Right Arm] Blood Pressure Source [Right Arm] Blood Pressure Position [Right Arm] 02 Sat by Pulse Oximetry 98 98 97 Oxygen Delivery Method 05/24/25 08:30 05/24/25 09:00 Temperature Temperature Source Pulse Rate 56 L 57 L Pulse Rate [Left] Respiratory Rate 18 16 Blood Pressure 130/84 132/88 Blood Pressure [Right Arm] Blood Pressure Mean 92 95 Blood Pressure Mean [Right Arm] Blood Pressure Source [Right Arm] Blood Pressure Position [Right Arm] 02 Sat by Pulse Oximetry 97 97 Oxygen Delivery Method Lab Data Lab results reviewed: Yes I reviewed the patient's lab results. Lab Results 05/24/25 05:52: WBC 11.9 H, RBC 4.45 L, Hgb 14.7, Hct 42.4, MCV 95.3 H, MCH 33.0 H, MCHC 34.7, RDW 13.2, Plt Count 317, MPV 10.5 H, Neut % (Auto) 63.0, Lymph % (Auto) 23.9, Dare % (Auto) 10.4 H, Eos % (Auto) 1.8, Baso % (Auto) 0.6, Neut # (Auto) 7.5, Lymph # (Auto) 2.8, Dare # (Auto) 1.2 H, Eos # (Auto) 0.2, Baso # (Auto) 0.1, PT 11.7, INR 1.06, Sodium 140, Potassium 4.4, Chloride 108 H, Carbon Dioxide 22, Anion Gap 14.4, BUN 14, Creatinine 0.90, Estimated Creat Clear 106, Estimated GFR 91, Est GFR ( Amer) 110, Glucose 111 H, Calcium 8.4, Total Bilirubin 0.9, AST 76 H, ALT 22, Alkaline Phosphatase 80, Troponin I < 0.01, NT-Pro-B Natriuret Pep < 20.0, Total Protein 7.5, Albumin 4.6, Globulin 2.9, Albumin/Globulin Ratio 1.6, TSH 3.06, Free T4 0.79 05/24/25 08:47: Troponin I < 0.01 Orders (Tests/Meds): ED MEDICATIONS Generic Name Dose Route Start Last Admin Trade Name Freq PRN Reason Stop Dose Admin Nitroglycerin 0.4 mg 05/24/25 06:07 Nitroglycerin 0.4mg Sl Tablet SL 05/25/25 06:08 Q5MINP PRN Chest Pain Discontinued Medications Generic Name Dose Route Start Last Admin Trade Name Freq PRN Reason Stop Dose Admin Aspirin 324 mg 05/24/25 06:07 05/24/25 06:24 Aspirin 81mg Chewable Tablet PO 05/24/25 06:08 324 mg ONCE ONE Administration ORDERS Category Date Time Status XR chest 2V Stat Exams 05/24/25 06:07 Completed Complete Blood Count Auto Diff Stat Lab 05/24/25 05:52 Completed Comprehensive Metabolic Panel Stat Lab 05/24/25 05:52 Completed D-Dimer Stat Lab 05/24/25 05:52 Received Free T4 (Free Thyroxine) Stat Lab 05/24/25 05:52 Completed NT Pro Brain Natriuretic Pep. Stat Lab 05/24/25 05:52 Completed Prothrombin Time INR Stat Lab 05/24/25 05:52 Completed Thyroid Stimulating Hormone Stat Lab 05/24/25 05:52 Completed Troponin I Q3H Lab 05/24/25 08:47 Completed Troponin I Q3H Lab 05/24/25 12:15 Ordered Troponin I Stat Lab 05/24/25 05:52 Completed Medical Decision Narrative: In summary, this 44-year-old male with comorbidities described in the HPI presents to the emergency department today with chest tightness associated with racing heart, dizziness that has since resolved. On initial evaluation patient is hemodynamically stable, afebrile, GCS 15, presented by EMS but is independently ambulatory in the ER, benign cardiopulmonary exam, no peripheral edema, unremarkable abdominal exam, no neurologic deficits. Differential diagnosis includes but is not limited to ACS, PE, arrhythmia, caffeine side effect, thyroid abnormality, electrolyte abnormality, dehydration, kidney dysfunction, among others. Based on these concerns, I ordered hematologic and serum labs, D-dimer, cardiac workup, chest x-ray. ECG personally interpreted demonstrates normal sinus rhythm, rate 65, normal axis, normal [place] and QTc, no STEMI. Patient received aspirin initially for treatment. He was not having chest pressure or pain so he did not take the nitro. Labs personally reviewed demonstrate mild leukocytosis WBC 11.9 is nonspecific and nonactionable at this time, no anemia, normal platelets, PT/INR normal, chemistry and troponin pending at the time of physician handoff. XR personally interpreted demonstrates no lobar infiltrate or pneumothorax, see radiology read for final interpretation which is pending at the time of physician shift change. Patient handed off to Dr. Brizuela in stable condition pending additional lab results and imaging results. Reassessment [address] Portillo's assessment of the patient's symptoms most likely be an caused by the massive amount of caffeine intake we had a long discussion about this weaning off or completely discontinuing this. Also has been referred to a special education bus driver serial troponin are negative patient has no concern for ongoing cardiopulmonary emergency patient discharged in stable condition. Critical Care <Adan Portillo MD - Last Filed: 05/24/25 06:57> Critical Care Time Critical Care Time: No
[2025-05-24 06:22] LABS: INR 1.06 (0.9-1.1); Prothrombin Time 11.7 seconds (10.1-12.5)
[2025-05-24] MEDS: ASPIRIN 81MG CHEWABLE TABLET 324 MG PO (06:24)
[2025-05-24 06:35] LABS: Albumin Level 4.6 g/dl (3.5-5.0); Chloride 108 mmol/L (98-107); Potassium 4.4 mmoL/L (3.5-5.1); Sodium 140 mmol/L (136-145)
[2025-05-24 06:37] LABS: Blood Urea Nitrogen 14 mg/dl (9-20); Creatinine Clearance Estimated 106 mL/min (50-200); Creatinine,Serum 0.90 mg/dl (0.66-1.25); Estimated Glomerular Filt Rate 91 ml/min (>60); GFR (African American) 110 ML/MIN (>60)
[2025-05-24 06:38] LABS: Alanine Aminotransferase 22 U/L (12-78); Albumin/Globulin Ratio 1.6 (1.1-1.8); Alkaline Phosphatase 80 U/L (38-126); Anion Gap 14.4 mEq/L (5-15); Aspartate Amino Transferase 76 U/L (17-59); Bilirubin,Total 0.9 mg/dl (0.2-1.3); Calcium 8.4 mg/dl (8.4-10.2); Carbon Dioxide 22 mmol/L (22.0-30.0); Globulin 2.9 g/dL (1.3-3.2); Glucose 111 mg/dl (74-100); Total Protein,Serum 7.5 g/dl (6.3-8.2)
[2025-05-24 06:47] LABS: NT Pro Brain Natriuretic Pep. < 20.0 pg/mL (0-125)
[2025-05-24 06:56] LABS: Free T4 (Free Thyroxine) 0.79 ng/dl (0.78-2.19)
[2025-05-24 07:03] LABS: Troponin I < 0.01 ng/ml (0.00-0.034)
--- NOTE | 2025-05-24 07:36 | PC.NURSE ---
ROUNDED ON PT, DENIES NEEDS AT THIS TIME. CALL LIGHT WITHIN REACH
[2025-05-24 07:39] LABS: Thyroid Stimulating Hormone 3.06 uIU/mL (0.465-4.68)
--- NOTE | 2025-05-24 08:45 | PC.NURSE ---
REPEAT TROP SENT, PT RESTING WITH EYES CLOSED. NO NEEDS AT THIS TIME
[2025-05-24 09:31] LABS: Troponin I < 0.01 ng/ml (0.00-0.034)
[2025-05-24 10:18] LABS: D-Dimer > 8.10 ug/mL (0.0-0.5)
== END 2025-05-24 09:48 | disposition home or self-care (01) ==
PROVIDERS: Emergency Provider Emergency Medicine
DX: R07.9 Chest pain, unspecified (principal); R06.02 Shortness of breath; R00.2 Palpitations; R79.89 Other specified abnormal findings of blood chemistry; T43.615A Adverse effect of caffeine, initial encounter; Z87.891 Personal history of nicotine dependence
CPT/HCPCS: 71046; 80053; 83880; 84439; 84443; 84484; 85025; 85378; 85610; 93005; 99285

== ENCOUNTER 2025-05-25 14:18 | Emergency (ER) | payer MEDICAID, SELFPAY ==
[2025-05-25 14:26] VITALS: BP 124/86; PULSE 70; RESP 20; TEMP 36.8; O2SAT 100; BMI 21.7
--- OUTSIDE RECORDS SUMMARY | 2025-05-25 14:30 | XMS_ITS | Clinical Summary ---
Author Organization Healthcare Address [address] [place] [address] Care Team Providers Care Machine Set Up Operator Paper Goods Name Role Phone Pcp, No Primary Care [...] years thereafter: Prescription sent to home pharmacy ([facility], [address] [place] [address]) - Quadrivalent meningococcal conjugate vaccine (menACWY, Menactra or Menveo) 0.5 mL IM - Meningococcal group B vaccine (MenB, Bexsero) 0.5 mL IM Follow up with outpatient trauma surgery clinic, nursing visit, for staple removal on 01/18. (Monday clinic) [address] [address] Follow up with outpatient trauma surgery, Dr. 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 (Monday clinic) [address] [facility] 1st [place] [address] Lumbar pars defect 12/05/2023 Chronic [...] place to sleep or slept in a correction (including now)? 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-CEMENT [employer] HELPER) to steady your nerves or to get [...] Cancer Screening 10/04/2024 [facility]-Depression Screening 01/24/2025 01/25/2024 [id number] Vaccine (1 - season) 2025 [facility]-Influenza Vaccine [...] ORDERABLES Final Resul t Performing Organization Address City/[facility] Co de Phone Number [facility] [address] [place] [address] * Hepatitis C Antibody - ED (01/03/2024 3:46 AM EDT) Pathologist [facility] Hepatitis C Antibody Negative Negative 01/03/2024 4:40 AM EDT [facility] Blood Venous blood specimen / Unknown Venipuncture / Unknown 01/03/2024 3:46 AM EDT 01/03/2024 4:00 AM EDT [facility] BLOOD ORDERABLES Final Resul t Performing Organization Address [facility] Co de Phone Number [facility] [address] [place] [address] from Last 3 Months or Most Recently Relevant to Health Maintenance Insurance [facility] MEDICAID Advance Directives * Full Code (Latest Code Status on File) Date Activated Date Inactivated Comments 01/06/2024 12:10 PM 01/11/2024 8:37 PM Question Answer Comments Patient has decision-making capacity? Yes * Full Code Date Activated Date Inactivated Comments 01/02/2024 10:30 AM 01/05/2024 7:43 PM Question Answer Comments Patient has decision-making capacity? Yes Care Teams Machine Set Up Operator Paper Goods Relationship Specialty Start Date End Date Pcp, Susy [address] [place] [address] PCP - General Family Medicine 11/19/23
--- OUTSIDE RECORDS SUMMARY | 2025-05-25 14:30 | XMS_ITS | Clinical Summary ---
Author Organization [facility] Address [facility] [place] [address] Phone Care Team Providers Care Photonics Engineer Name Role Phone Clari Mccarthy MA Unavailable [phone] Conditions or Problems No information available. Medications No information available. Medications Administered No information available. Allergies, Adverse Reactions, Alerts No information available. Results No information available. Plan of Care No information available. Procedures No information available. Vital Signs No information available. Immunizations No information available. Advance Directives No information available.
--- NOTE | 2025-05-25 14:49 | CT_ITS ---
PROCEDURE INFORMATION: Exam: CTA Chest With Contrast Exam date and time: 05/25/2025 3:06 PM Age: 44 years old Clinical indication: Other: Elevated d dimer; Additional info: Elevated d dimer, chest tightness TECHNIQUE: Imaging protocol: Computed tomographic angiography of the chest with contrast. Exam focused on the arteries. 3D rendering (Not supervised by radiologist): MIP and/or 3D reconstructed images were created by the technologist. Radiation optimization: All CT scans at this facility use at least one of these dose optimization techniques: automated exposure control; mA and/or kV adjustment per patient size (includes targeted exams where dose is matched to clinical indication); or iterative reconstruction. Contrast material: ISOVUE; Contrast volume: 70 ml; Contrast route: INTRAVENOUS (IV); COMPARISON: CT ANGIO CHEST 01/06/2024 5:27 AM FINDINGS: Pulmonary arteries: Pulmonary arteries are normal. No pulmonary embolus. Aorta: The aorta is unremarkable. No aneurysm. Lungs: Stable small thin-walled cysts scattered evenly throughout both lungs. Pleural spaces: Unremarkable. No pneumothorax. No pleural effusion. Heart: The heart is unremarkable. No cardiomegaly. No pericardial effusion. Esophagus: The esophagus is unremarkable. Lymph nodes: No enlarged lymph nodes. Kidneys: Partially visible low-density mass, anterior cortex right mid kidney measuring 4.7 cm in greatest axial dimension, series 5, image 128 and measuring 11 Hounsfield units in density. This is increased in size compared to measurement of 0.0 cm in greatest axial dimension on the CT chest abdomen and pelvis of 01/02/2024. New 12 mm hypodensity, posterior cortex, mid right kidney, series 5, image 128 measuring 13 Hounsfield units in density. Stable 6 mm hypodensity, posterior cortex, superior pole left kidney. Bones/joints: Unremarkable. No acute fracture. Soft tissues: The remaining soft tissue is unremarkable. IMPRESSION: 1. Pulmonary arteries are normal. No pulmonary embolus. 2. Stable small thin-walled cysts scattered evenly throughout both lungs with indeterminate but low-density masses of the kidneys that are likely cysts. However, due to the presence of the pulmonary cysts, follow-up nonemergent CT abdomen without and with IV contrast, renal mass protocol is recommended. COMMENTS: Consistent with the [employer]'s Incidental Findings Committee white paper (J Am Liset Radiol 2018): Any incidental renal lesion less than 1 cm or classified as too small to characterize, or any incidental cystic renal lesion characterized as simple-appearing, is likely benign. No follow-up imaging is recommended for these lesions per consensus recommendations based on imaging criteria.
--- NOTE | 2025-05-25 14:59 | PC.NURSE ---
Asked by registration staff to update patient's . Spoke with , updated her on plan of care.
[2025-05-25 15:05] VITALS: BP 118/78; PULSE 61; O2SAT 99
[2025-05-25] MEDS: 0.9 % SODIUM CHLORIDE 50 ML VIAL IV (15:10)
[2025-05-25] MEDS: SODIUM CHLORIDE 0.9% 10ML SYR (RAD ONLY) 10 ML IV (15:10)
[2025-05-25] MEDS: IOPAMIDOL-370 (76%);100ML BOTTLE 70 ML IV (15:10)
--- NOTE | 2025-05-25 15:52 | ED_ITS ---
<Statement entered by Cassy Wooten DO - 05/25/25 23:51> I was consulted by the RAYMOND, and we discussed the complexity of problems being addressed. I approve the treatment and management plan for this patient's care in the emergency department, thus performing a substantial portion of the medical decision making. Cassy Wooten DO Discharge Plan Disposition Patient Disposition: Home, Self-Care Condition: Good Prescriptions Prescriptions: No Action methocarbamol 500 mg tablet 500 mg PO Q8H sennosides-docusate sodium [Senexon-S] 8.6-50 mg tablet 2 tab PO DAILYP PRN (Reason: stool softner) acetaminophen 500 mg tablet 1,000 mg PO Q6HP PRN (Reason: Pain) gabapentin 100 mg capsule 100 mg PO DIRECTED oxycodone 5 mg Tablet 5 mg PO Q6H PRN (Reason: Pain) hydroxyzine pamoate 25 mg capsule 25 mg PO Q6HP PRN (Reason: Anxiety) sulfamethoxazole-trimethoprim [Bactrim DS] 800-160 mg tablet 1 tab PO Q12H 7 Days Qty: 14 0RF Referrals Follow up/Referrals: Cj Basurto DO [Staff Physician, Family Practice] - See instructions Provider,Referral, [Primary Care Provider, Medical] - See instructions Activity Restrictions/Add. Instructions Additional Instructions/Restrictions: You were seen for a positive d dimer. There were no blood clots on your CT. You did have some lung cysts and kidney cysts. It is recommended that you have repeat CT scan of your abdomen/ pelvis with your PCP. Clinical Impressions Clinical Impression: Lung cyst, Renal cyst Instructions Patient Instructions: DI for Pulmonary Nodule Print Language Print Language: French Discharge ED Provider: Jack Reyes General Adult HPI <Jack Reyes MD - Last Filed: 05/25/25 15:53> General Chief complaint: Dizziness Stated complaint: Dizziness, lightheaded, told per Portillo to have CT Time Seen by Provider: 05/25/25 14:44 Mode of Arrival: Ambulatory Source of Information: Patient Description of Symptoms (Recalled from ER Triage Doc. by RN): jesus presents for a CT scan. patient stated he was called by Dr Portillo overnight to return to the ED for a CT scan for a possible blood clot in his chest . no other complaints. Related Data Home Medications ?Medication ?Instructions ?Recorded ?Confirmed acetaminophen 500 mg tablet 1,000 mg PO Q6HP PRN Pain 01/06/24 01/06/24 gabapentin 100 mg capsule 100 mg PO DIRECTED neurop athy 01/06/24 01/06/24 hydroxyzine pamoate 25 mg capsule 25 mg PO Q6HP PRN An xiety 01/06/24 01/06/24 methocarbamol 500 mg tablet 500 mg PO Q8H 01/06/24 oxycodone 5 mg tablet 5 mg PO Q6H PRN Pain 4 01/06/24 sennosides 8.6 mg-docusate sodium 2 tab PO DAILYP PRN stool softner 01/06/24 01/06/24 50 mg tablet (Senexon-S) Previous Rx's ?Medication ?Instructions ?Recorded sulfamethoxazole 800 1 tab PO Q12H 7 days #14 tab s 06/12/24 mg-trimethoprim 160 mg tablet (Bactrim DS) Allergies Allergy/AdvReac Type Severity Reaction Status Date / Time No Known Allergies Allergy Verified 04/16/18 13:01 <BLAYNE Carrillo - Last Filed: 05/25/25 20:16> History of Present Illness HPI narrative: Patient presents for CTA of the chest. He was discharged yesterday and subsequently found to have an elevated D-dimer over 8. He was called by the attending physician and it was requested that he return to the ED for a CTA chest to rule out PE. Reports yesterday he was experiencing lightheadedness and chest tightness. The symptoms have resolved. complaint: Elevated D-dimer Onset (ago): day(s) Radiation: non-radiation Relieving factors: none Exacerbating factors: none Associated symptoms: denies other symptoms Treatments prior to arrival: none [facility] <Jack Reyes MD - Last Filed: 05/25/25 15:53> [facility] Disclaimer: The information contained in this section may have been updated after the patient was seen, as this information can be updated by other users. Medical History (Updated 05/25/25 @ 16:29 by BLAYNE Carrillo) Depression Anxiety Urinary tract infection History of gastroesophageal reflux (GERD) Migraine Asthma Social History (Updated 01/01/24 @ 20:24 by Jeromy Galvan APRN) Smoking Status: Current every day smoker tobacco type: cigarettes alcohol intake: never current occupational status: disabled Travel in the last 8 weeks?: None Have you lived/traveled outside [place] in past 30 days?: No Contact w/someone who lives/traveled outside [place] past 30 days?: No Exposure to someone with infectious disease in past 14 days?: No Do you have a fever (greater than 100.4 F or 38 C)?: No Have you tested positive for COVID-19?: No Exposed to someone with COVID-19 in past 14 days?: No Do you have a sore throat?: No Do you have a cough?: No Do you have any weakness?: No Do you have any diarrhea?: No Are you experiencing any unusual bleeding?: No Do you have any muscle aches/pain?: No Do you have any abdominal pain?: No Are you experiencing loss of taste or smell?: No Other Medical History Have you received the Flu Vaccine for this season: Yes Have you received the Pneumonia Vaccine: Yes <BLAYNE Carrillo - Last Filed: 05/25/25 20:16> ROS Obtained: Yes Systems reviewed as appropriate & no additional complaints except as documented Physical Exam <BLAYNE Carrillo - Last Filed: 05/25/25 20:16> General General appearance: alert and in no apparent distress Head Head exam: atraumatic and normocephalic Eye Eye exam: Present normal appearance and EOMI Chest Chest inspection: Present symmetric chest wall rise Respiratory Respiratory exam: Present normal lung sounds bilaterally; Absent wheezes or stridor Cardiovascular Cardiovascular exam: Present regular rate and normal rhythm; Absent systolic murmur Extremities Exam Extremities exam: Present full ROM Neurological Exam Neurological exam: Present alert and oriented X3 Psychiatric Psychiatric exam: Present normal affect and normal mood Skin Skin exam: Present warm, dry and intact Medical Decision Making <Jack Reyes MD - Last Filed: 05/25/25 15:53> Medical Records Screening: Per USPSTF and CDC recommendations, given the prevalence of disease in our region, it is our hospital?s policy to screen for HIV and viral Hepatitis for all patients aged 18 and over and those with ongoing risk factors. Vital Signs: 05/25/25 14:26 05/25/25 15:05 05/25/25 16:41 Temperature 98.2 F 98.7 F Temperature Source Oral Oral Pulse Rate 61 83 Pulse Rate [Right Radial] 70 Respiratory Rate 20 15 Blood Pressure 118/78 124/84 Blood Pressure [Right Arm] 124/86 Blood Pressure Mean [Right Arm] 98 Blood Pressure Source Automatic Cuff Blood Pressure Source [Right Arm] Automatic Cuff Blood Pressure Position Sitting Blood Pressure Position [Right Arm] Sitting 02 Sat by Pulse Oximetry 100 99 Oxygen Delivery Method Room Air Room Air Orders (Tests/Meds): ED MEDICATIONS Discontinued Medications Generic Name Dose Route Start Last Admin Trade Name Freq PRN Reason Stop Dose Admin Iopamidol 70 ml 05/25/25 15:10 05/25/25 15:10 Iopamidol-370 (76%);100ml Bottle IV 05/25/25 15:11 70 ml ONCE ONE Administration Sodium Chloride 50 ml 05/25/25 15:10 05/25/25 15:10 0.9 % Sodium Chloride 50 Ml Vial IV 05/25/25 15:11 50 ml ONCE ONE Administration Sodium Chloride 10 ml 05/25/25 15:10 05/25/25 15:10 Sodium Chloride 0.9% 10ml Syr (Rad Only) IV 06/24/25 15:09 10 ml NEEDED PRN Administration Maintain IV Site ORDERS Category Date Time Status CTA Chest [CT angio chest PE protocol] Stat Cat Scan 05/25/25 14:49 Completed Medical Decision Narrative: I was consulted by the RAYMOND, and we discussed the complexity of the problems being addressed. I approved the treatment and management plan for this patient's care in the Emergency Department, thus performing a substantive portion of the medical decision making. Jack Reyes MD <BLAYNE Carrillo - Last Filed: 05/25/25 20:16> Nathan Inquiry Pt receiving controlled substance: No Vital Signs: 05/25/25 14:26 05/25/25 15:05 05/25/25 16:41 Temperature 98.2 F 98.7 F Temperature Source Oral Oral Pulse Rate 61 83 Pulse Rate [Right Radial] 70 Respiratory Rate 20 15 Blood Pressure 118/78 124/84 Blood Pressure [Right Arm] 124/86 Blood Pressure Mean [Right Arm] 98 Blood Pressure Source Automatic Cuff Blood Pressure Source [Right Arm] Automatic Cuff Blood Pressure Position Sitting Blood Pressure Position [Right Arm] Sitting 02 Sat by Pulse Oximetry 100 99 Oxygen Delivery Method Room Air Room Air Orders (Tests/Meds): ED MEDICATIONS Discontinued Medications Generic Name Dose Route Start Last Admin Trade Name Freq PRN Reason Stop Dose Admin Iopamidol 70 ml 05/25/25 15:10 05/25/25 15:10 Iopamidol-370 (76%);100ml Bottle IV 05/25/25 15:11 70 ml ONCE ONE Administration Sodium Chloride 50 ml 05/25/25 15:10 05/25/25 15:10 0.9 % Sodium Chloride 50 Ml Vial IV 05/25/25 15:11 50 ml ONCE ONE Administration Sodium Chloride 10 ml 05/25/25 15:10 05/25/25 15:10 Sodium Chloride 0.9% 10ml Syr (Rad Only) IV 06/24/25 15:09 10 ml NEEDED PRN Administration Maintain IV Site ORDERS Category Date Time Status CTA Chest [CT angio chest PE protocol] Stat Cat Scan 05/25/25 14:49 Completed Medical Decision Narrative: Patient presents for a CTA of the chest ever being found to have an elevated D- dimer yesterday. Patient reports he is currently asymptomatic. CTA chest was obtained and is negative for pulmonary embolism. He was found to have some pulmonary cysts and possible renal cyst. Advised to have a CT of the abdomen pelvis as an outpatient with his primary care provider. Patient voices understanding. I was consulted by the RAYMOND, and we discussed the complexity of the problems being addressed. I approved the treatment and management plan for this patient's care in the Emergency Department, thus performing a substantive portion of the medical decision making. Jack Reyes MD Critical Care <BLAYNE Carrillo - Last Filed: 05/25/25 20:16> Critical Care Time Critical Care Time: No
[2025-05-25 16:41] VITALS: BP 124/84; PULSE 83; RESP 15; TEMP 37.1; O2SAT 99
== END 2025-05-25 16:42 | disposition home or self-care (01) ==
PROVIDERS: Emergency Provider Student in an Organized Health Care Education/Training Program
DX: R07.9 Chest pain, unspecified (principal); J98.4 Other disorders of lung; N28.1 Cyst of kidney, acquired; Z87.891 Personal history of nicotine dependence
CPT/HCPCS: 71275; 99283; 99284; Q9967